=== PATIENT | female | born 1965 | race Caucasian/White ===

== ENCOUNTER → 2016-09-10 | Outpatient (CLI) | payer BC ==
--- NOTE | 2016-09-11 12:36 | MAMMOGRAPHY REPORT ---
BILATERAL DIGITAL SCREENING MAMMOGRAM TOMOSYNTHESIS WITH CAD: 09/10/2016 CLINICAL HISTORY: Routine screening examination. TECHNIQUE: Breast tomosynthesis in addition to standard 2D mammography was performed. Current study was also evaluated with a Computer Aided Detection (CAD) system. COMPARISON: Comparison is made to exams dated: 09/05/2015 mammogram, 08/30/2014 mammogram, 08/29/2013 mammogram, 08/27/2012 mammogram, 08/26/2011 mammogram - [facility], and 01/17/2009 . BREAST COMPOSITION: The tissue of both breasts is heterogeneously dense, which may obscure small ma sses. FINDINGS: There is a 6 mm angular asymmetry with new associated calcification in the far superior r ight breast, only seen on the MLO view, for which additional spot compression tomosynthesis and spot magnification views with possible ultrasound are recommended. There are stable scattered and grouped benign-appearing microcalcifications throughout each breast. No other suspicious mass, architectural distortion or cluster of microcalcifications is seen. IMPRESSION: ACR BI-RADS CATEGORY 0: INCOMPLETE EVALUATION: NEED ADDITIONAL IMAGING EVALUATION The 6 mm angular asymmetry with new associated calcification in the right superior breast/axillary t ail needs additional evaluation. The patient will be called to schedule an appointment. Approximately 10% of breast cancers are not detected with mammography. A negative mammographic repor t should not delay biopsy if a clinically suggestive mass is present. Casie Crane M.D. ay/:09/10/2016 17:19:32 Finish Cleaner: Linda OCASIO)(Alessia), [facility] letter sent: Addl Imaging 0 BI-RADS Code: ACR BI-RADS Category 0: Incomplete Evaluation: Need Additional Imaging Evaluation
== END | disposition home or self-care (01) ==
LOC: C.MAMM 16:28
PROVIDERS: ATTEND Family Medicine
DX: Z12.31 Encounter for screening mammogram for malignant neoplasm of breast (principal); R92.8 Other abnormal and inconclusive findings on diagnostic imaging of breast; R92.1 Mammographic calcification found on diagnostic imaging of breast

== ENCOUNTER → 2016-09-22 | Outpatient (CLI) | payer BC ==
--- NOTE | 2016-09-22 15:00 | MAMMOGRAPHY REPORT ---
UNILATERAL RIGHT DIGITAL DIAGNOSTIC MAMMOGRAM TOMOSYNTHESIS AND TARGETED RIGHT ULTRASOUND: 09/22/2016 CLINICAL HISTORY: 51-year-old woman called back from screening mammography for an asymmetry with pos sible associated microcalcification in the far superior axillary tail of the right breast, only seen on the MLO view. Family history of breast cancer = mother and aunt. Patient has a personal histor y of prior benign breast biopsy. TECHNIQUE: Right XCCL, spot magnification ML and spot compression 2-D digital and tomosynthesis MLO views were obtained. COMPARISON: Comparison is made to exams dated: 09/10/2016 mammogram, 09/05/2015 mammogram, 08/30/2014 mammogram, 09/02/2013 mammogram, 08/29/2013 mammogram, and 08/26/2011 mammogram - [facility]. BREAST COMPOSITION: The tissue of the right breast is heterogeneously dense, which may obscure smal l masses. FINDINGS: There is partial effacement of the asymmetry in the far superior axillary tail region on the spot compression right MLO view including, synthesis images. This tissue has the appearance of normal accessory breast tissue and has been present on prior mammograms dating back to at least 2007 . There is no persistent nodularity. However, there are 1-2 microcalcifications associated with th is accessory breast tissue. When comparing to all available prior mammograms, one of the calcificat ions may have been present in 2012. Nevertheless, given the increased conspicuity a short interval follow-up right mammogram including spot magnification views is recommended to ensure stability in 6 months. Targeted ultrasound was performed in the right axillary tail. Dense glandular tissue with tubular i nterspersed milked ducts are seen in the axillary tail region 19-20 cm from the nipple in the approx imate 10:00 right breast. However, there is no evidence of a suspicious solid mass in this location . IMPRESSION: ACR-BI-RADS CATEGORY 3: PROBABLY BENIGN, TARGETED ULTRASOUND ACR-BI-RADS CATEGORY 3: IA OBABLY BENIGN There is accessory breast tissue in the right axillary tail, without evidence of an underlying mass. 1-2 microcalcifications associated with the glandular tissue in this location are increased and co nspicuity compared to prior exams. Therefore, a short interval follow-up right mammogram including spot magnification views and possible ultrasound is recommended to ensure stability in 6 months. These results and recommendations were discussed with the patient at the time of the exam. She tent atively scheduled a follow-up appointment prior to leaving our department. Approximately 10% of breast cancers are not detected with mammography. A negative mammographic repor t should not delay biopsy if a clinically suggestive mass is present. Casie Crane M.D. ay/:09/22/2016 09:32:39 Restaurant Line Cook: Anitha Ch, [facility] letter sent: Follow Up Recommended 3 BI-RADS Code: ACR-BI-RADS Category 3: Probably Benign Ultrasound BI-RADS: ACR-BI-RADS Category 3: P robably Benign
== END | disposition home or self-care (01) ==
LOC: C.MAMM 08:38
PROVIDERS: ATTEND Family Medicine
DX: N64.9 Disorder of breast, unspecified (principal); R92.8 Other abnormal and inconclusive findings on diagnostic imaging of breast; R92.0 Mammographic microcalcification found on diagnostic imaging of breast

== ENCOUNTER → 2017-02-27 | Outpatient (CLI) | payer BC ==
[2017-02-27 13:14] LABS: BASO % 0.2 %; BASO ABS # 0.01 K/uL (0-0.2); COMPLETE YES; EOS % 0.6 %; HEMATOCRIT 37.9 % (37-47); IG% 0.2 %; LYMPH % 29.1 %; LYMPH ABS # 1.88 K/uL (1.2-3.4); MEAN CELL VOLUME 88.6 fL (80-100); MEAN CORPUSCULAR HEMOGLOBIN 29.2 pg (25-34); MEAN PLATELET VOLUME 8.8 fL (7.4-10.4); MONO % 10.5 %; NEUT % 59.4 %; PLATELET COUNT 359 K/uL (130-400); RED BLOOD COUNT 4.28 M/uL (4.2-5.4); WHITE BLOOD COUNT 6.47 K/uL (4.8-10.8)
[2017-02-27 15:07] LABS: ALT/SGPT 25 U/L (12-78); BLOOD UREA NITROGEN 17 mg/dl (7-18); BUN/CREATININE RATIO 19.1 (10-20); CALCIUM 8.9 mg/dl (8.5-10.1); CARBON DIOXIDE 25 mmol/L (21-32); CHLORIDE 104 mmol/L (98-107); CHOLESTEROL 214 mg/dl (0-200); CHOLESTEROL/HDL RATIO 3.1; CREATININE 0.89 mg/dl (0.60-1.20); GLUCOSE 90 mg/dl (70-99); HDL CHOLESTEROL 68 mg/dl; LDL CHOLESTEROL CALCULATED 132 mg/dl; POTASSIUM 4.4 mmol/L (3.5-5.1); SODIUM 135 mmol/L (136-145); TRIGLYCERIDES 71 mg/dl (0-150); VERY LOW DENSITY LIPOPROT CALC 14 mg/dl
[2017-02-27 15:16] LABS: ALB/GLOB RATIO 0.9 (0.9-2); ALKALINE PHOSPHATASE 63 U/L (45-117); AST/SGOT 24 U/L (15-37)
== END | disposition home or self-care (01) ==
LOC: C.LABMFLN 10:54
PROVIDERS: ATTEND Family Medicine
DX: I10 Essential (primary) hypertension (principal); E78.5 Hyperlipidemia, unspecified

== ENCOUNTER → 2017-03-23 | Outpatient (CLI) | payer BC ==
--- NOTE | 2017-03-23 14:31 | MAMMOGRAPHY REPORT ---
UNILATERAL RIGHT DIGITAL DIAGNOSTIC MAMMOGRAM TOMOSYNTHESIS WITH CAD AND TARGETED RIGHT ULTRASOUND: CLINICAL HISTORY: Six-month follow-up of right breast asymmetry and calcifications. Family history o f breast cancer including her mother and aunt. TECHNIQUE: Breast tomosynthesis in addition to standard 2D mammography was performed. Current study was also evaluated with a Computer Aided Detection (CAD) system. Right CC and MLO and spot compressi on right CC and MLO 2-D and tomosynthesis images and spot magnification right cc and ML views were ob tained. COMPARISON: Comparison is made to exams dated: 09/22/2016 ultrasound, 09/10/2016 mammogram, 09/22/2016 mammogram, 09/05/2015 mammogram, 08/30/2014 mammogram, and 09/02/2013 ultrasound - [facility]. BREAST COMPOSITION: The tissue of the right breast is heterogeneously dense, which may obscure small masses. FINDINGS: Again noted is an asymmetry in the right axillary tail region seen on the MLO view, which is stable compared to multiple prior exams and is consistent with accessory breast tissue. Magnifica tion views of this region demonstrate 1-2 benign-appearing calcifications associated with the accesso ry breast tissue which are stable compared to the August 2016 exam and are considered benign given t he morphology and stability. No suspicious cluster of calcifications is noted in this region. There is questionable architectural distortion seen within the right lateral breast at approximately 9:00, only seen on the tomosynthesis images. The possible architectural distortion does not clearly persist on the spot compression views. The remainder of the right breast is stable compared to prior exams, without suspicious masses, calcifications, or areas of architectural distortion noted. Scatt ered benign-appearing calcifications are not significantly changed. Targeted ultrasound was performed of the area of the possible architectural distortion within the rig ht 9:00 breast. The breast tissue is markedly heterogeneous on ultrasound, with multiple areas of sh adowing seen which reduces the sensitivity of the exam. One focal shadowing hypoechoic region is see n within the right breast at 9:00, 2 cm from the nipple on the antiradial image, which does not persi st on radial imaging and therefore likely does not represent a true finding. No clear masses or othe r suspicious findings are seen although ultrasound exam is limited. Given the questionable tableau architect ural distortion mammographically and given the strong family history of breast cancer, recommend furt her evaluation with breast MRI. IMPRESSION: ACR BI-RADS CATEGORY 0: INCOMPLETE EVALUATION: NEED ADDITIONAL IMAGING EVALUATION, TARG ETED ULTRASOUND ACR BI-RADS CATEGORY 0: INCOMPLETE EVALUATION: NEED ADDITIONAL IMAGING EVALUATION 1. The accessory breast tissue in the right axillary tail with 1-2 associated benign-appearing calci fications is stable and considered benign. No suspicious cluster of calcifications is noted. 2. Questionable architectural distortion within the right lateral breast at approximately 9:00, with out a clear sonographic correlate evident although the ultrasound exam is limited due to heterogeneou s tissue sonographically. Given the possible architectural distortion and given the strong family hi story of breast cancer, recommend further evaluation with bilateral breast MRI. The patient has been verbally notified of the results. Approximately 10% of breast cancers are not detected with mammography. A negative mammographic report should not delay biopsy if a clinically suggestive mass is present. Summer Thomas M.D. ah/:03/23/2017 11:55:42 Hand Decorator: Anitha Ch, [facility] letter sent: Addl Imaging 0 BI-RADS Code: ACR BI-RADS Category 0: Incomplete Evaluation: Need Additional Imaging Evaluation Ult rasound BI-RADS: ACR BI-RADS Category 0: Incomplete Evaluation: Need Additional Imaging Evaluation
== END | disposition home or self-care (01) ==
LOC: C.MAMM 10:32
PROVIDERS: ATTEND Family Medicine
DX: N64.89 Other specified disorders of breast (principal)

== ENCOUNTER → 2017-03-31 | Outpatient (CLI) | payer BC ==
--- NOTE | 2017-04-02 12:47 | MAMMOGRAPHY REPORT ---
BREAST MRI OF BOTH BREASTS : 03/31/2017 CLINICAL HISTORY: 52-year-old woman with a strong family history of breast cancer presents for breast MRI to assess possible architectural distortion in the lateral right breast, best seen on the CC vie w. COMPARISON: Comparison is made to exams dated: 03/23/2017 mammogram, 09/22/2016 ultrasound, 09/22/2016 mammogram, 09/10/2016 mammogram, 09/05/2015 mammogram, and 08/30/2014 mammogram - [facility]. TECHNIQUE: Using a 1.5 Mary magnet and dedicated breast coil, multisequence axial images were obtain ed through the breasts. After uneventful IV administration of 7 mL of Gadavist, dynamic multiphase c ontrast-enhanced axial images, and sagittal postcontrast were obtained. Temporal subtraction axial i mages and 3-D MIP images are provided. Everything was then reviewed on a 3-D workstation, [id number]. FINDINGS: Right breast: There is remj-kd-gymdwxkn background parenchymal enhancement with numerous round and ov al scattered foci of enhancement throughout the right breast. There is accessory breast tissue in th e right axillary tail without evidence of associated mass or non-mass enhancement, or suspicious kine tics, compatible with benign fibroglandular tissue. There is an ovoid, fat density, 26 x 13 mm defec t in the glandular tissue in the 9:00 anterior right breast, with mild associated architectural disto rtion, in the location of the suspected architectural distortion seen mammographically. There is no associated enhancement in this area of distortion or surrounding the defect. Additionally, there are 3-4 foci of susceptibility artifact along the periphery of the defect (best seen on axial T1 nonfat saturated page 132/240), suggesting this represents a surgical site. This must be correlated with pr ior records. There is an ovoid circumscribed hypoenhancing mass with internal septum in the far infe rior 5:00 to 6:00 right breast that measures 4.8 x 7.0 x 3.5 mm (axial page 108/120 and sagittal page 100/132). This is T2 hyperintense and does not demonstrate any suspicious kinetics. This is most c ompatible with a benign fibroadenoma. There is no evidence of a suspicious enhancing mass, suspiciou s non-mass enhancement or washout kinetics in the right breast. No focal skin thickening or nipple r etraction. No suspicious right axillary lymphadenopathy. Left breast: There is usoc-qf-tftgrukh background parenchymal enhancement with numerous scattered foc i of enhancement throughout the left breast. No suspicious enhancing mass, non-mass enhancement, arc hitectural distortion or suspicious kinetics are identified in the left breast. No focal skin thicke joy or nipple retraction. No suspicious left axillary lymphadenopathy. IMPRESSION: ACR BI-RADS CATEGORY 2: BENIGN 1. There is a well circumscribed oval central fat density defect in the glandular tissue of the 9:00 anterior right breast, containing susceptibility artifact likely surgical material at the periphery, and demonstrating no associated enhancement. This is most compatible with a prior surgical site and correlation with prior medical/surgical records is recommended. 2. Overall, no suspicious enhancing mass, non-mass enhancement or suspicious washout kinetics are se en bilaterally. No suspicious axillary adenopathy bilaterally. There is no MRI evidence of malignan cy and would recommend return to annual screening mammography schedule, which is due in August 2017. Given the strong family history of breast cancer and dense breasts, also consider additional screen ing with breast MRI. The patient will receive written notification of the results. Casie Crane M.D. ay/:04/01/2017 21:21:25 Pull Over Machine Operator: car hiker, [facility] letter sent: Normal 1/2 BI-RADS Code: ACR BI-RADS Category 2: Benign
== END | disposition home or self-care (01) ==
LOC: C.MRI 14:03
PROVIDERS: ATTEND Family Medicine
DX: R92.8 Other abnormal and inconclusive findings on diagnostic imaging of breast (principal)

== ENCOUNTER → 2017-09-16 | Outpatient (CLI) | payer BC ==
--- NOTE | 2017-09-17 15:53 | MAMMOGRAPHY REPORT ---
BILATERAL DIGITAL SCREENING MAMMOGRAM TOMOSYNTHESIS WITH CAD: 09/16/2017 CLINICAL HISTORY: Routine screening. Patient has no complaints. TECHNIQUE: Breast tomosynthesis in addition to standard 2D mammography was performed. Current study was also evaluated with a Computer Aided Detection (CAD) system. COMPARISON: Comparison is made to exams dated: 09/10/2016 mammogram, 09/05/2015 mammogram, 08/30/2014 m ammogram, 08/29/2013 mammogram, 08/27/2012 mammogram, and 08/26/2011 mammogram - [facility]. BREAST COMPOSITION: The tissue of both breasts is heterogeneously dense, which may obscure small mas ses. FINDINGS:The fibroglandular pattern is similar to multiple prior mammograms including stable asymmetr ies in the superior posterior aspect of each breast on the MLO views. There is also stable accessory breast tissue in the far superior right breast on the MLO view. Numerous stable groupings of benign -appearing punctate and round microcalcifications. Expected architectural distortion in the upper ou ter quadrant of the right breast, from prior excision. No new suspicious mass, architectural distort ion or cluster of microcalcifications is seen. IMPRESSION: ACR BI-RADS CATEGORY 1: NEGATIVE There is no mammographic evidence of malignancy. A 1 year screening mammogram is recommended. The pa tient will receive written notification of the results. Approximately 10% of breast cancers are not detected with mammography. A negative mammographic report should not delay biopsy if a clinically suggestive mass is present. Casie Crane M.D. ay/:09/16/2017 17:04:45 Jewel Stripper: Linda OCASIO)(Alessia), letter sent: Normal 1/2 BI-RADS Code: ACR BI-RADS Category 1: Negative
== END | disposition home or self-care (01) ==
LOC: C.MAMM 16:40
PROVIDERS: ATTEND Family Medicine
DX: Z12.31 Encounter for screening mammogram for malignant neoplasm of breast (principal)

== ENCOUNTER → 2018-03-18 | Outpatient (CLI) | payer BC ==
[2018-03-18 13:15] LABS: BASO % 0.2 %; BASO ABS # 0.01 K/uL (0-0.2); EOS % 0.5 %; EOS ABS # 0.03 K/uL (0-0.5); HEMATOCRIT 36.4 % (37-47); IG# 0.01 K/uL (0.00-0.02); LYMPH % 37.9 %; MEAN CELL VOLUME 89.7 fL (80-100); MEAN CORPUSCULAR HEMOGLOBIN 29.6 pg (25-34); MEAN PLATELET VOLUME 9.4 fL (7.4-10.4); MONO % 11.4 %; MONO ABS # 0.63 K/uL (0.11-0.59); NEUT % 49.8 %; NEUT ABS # 2.76 K/uL (1.4-6.5); PLATELET COUNT 351 K/uL (130-400); RED CELL DISTRIBUTION WIDTH SD 42.4 fL (36.4-46.3); WHITE BLOOD COUNT 5.54 K/uL (4.8-10.8)
[2018-03-18 14:05] LABS: ALBUMIN 3.2 gm/dl (3.4-5.0); ALKALINE PHOSPHATASE 67 U/L (45-117); ALT/SGPT 22 U/L (12-78); AST/SGOT 19 U/L (15-37); BLOOD UREA NITROGEN 17 mg/dl (7-18); CALCIUM 8.3 mg/dl (8.5-10.1); CARBON DIOXIDE 25 mmol/L (21-32); CHOLESTEROL 184 mg/dl (0-200); CREATININE 0.71 mg/dl (0.60-1.20); GLUCOSE 81 mg/dl (70-99); LDL CHOLESTEROL CALCULATED 98 mg/dl; POTASSIUM 4.1 mmol/L (3.5-5.1); SODIUM 137 mmol/L (136-145); TOTAL PROTEIN 7.5 gm/dl (6.4-8.2)
== END | disposition home or self-care (01) ==
LOC: C.LABMFLN 09:07
PROVIDERS: ATTEND Family Medicine
DX: I10 Essential (primary) hypertension (principal); E78.5 Hyperlipidemia, unspecified